=== PATIENT | female | born 1965 | race African-American/Black ===

== ENCOUNTER 2018-12-05 16:15 | Inpatient (IN) | payer BC ==
[2018-12-05 16:27] VITALS: BMI 34.9
[2018-12-05 17:31] LABS: Hemoglobin 12.3 g/dL (12.0-16.0); Mean Corpuscular HGB CONC 31.9 g/dL (32.0-36.0); Mean Corpuscular Hemoglobin 24.4 pg (27.0-31.0); Mean Corpuscular Volume 76.7 fL (78.0-98.0); Mean Platelet Volume 8.2 fL (7.4-10.4); Platelet Count 395 thou/uL (130-400); RBC Distribution Width 14.8 % (11.5-14.5); Red Blood Cell (RBC) Count 5.01 mill/uL (4.20-5.40); White Blood Cell (WBC) Count 5.6 thou/uL (4.8-10.8)
[2018-12-05 17:58] LABS: Anion Gap 14 mmol/L (10-20); BUN (Urea Nitrogen) 13 mg/dL (9.8-20.1); Calc. Creatinine Clearance 121 mL/min (70-130); Calcium 9.8 mg/dL (7.8-10.44); Carbon Dioxide 24 mmol/L (22-29); Chloride 107 mmol/L (98-107); Estimated GFR-MDRD Greater than 90; Glucose 86 mg/dL (70-105); Potassium 3.9 mmol/L (3.5-5.1); Sodium 141 mmol/L (136-145)
[2018-12-06] MEDS ORDERED: Gabapentin 300 MG CAP ONE (10:04)
[2018-12-06] MEDS ORDERED: CeleCOXIB 100 MG CAP ONE (10:04)
[2018-12-06] MEDS ORDERED: Famotidine/PF 20 mg/2ml Vial ONE (10:04)
[2018-12-06] MEDS ORDERED: Bupivacaine/Epinephrine 0.25% 30 ML VIAL ONE (13:27)
[2018-12-06] MEDS ORDERED: Fentanyl 100 MCG/2 ML VIAL ONE ×4 (13:36→18:02)
[2018-12-06] MEDS ORDERED: Promethazine HCl 25 MG/ML VIAL IM PRN (16:25)
[2018-12-06] MEDS ORDERED: Simethicone Chewable 80 MG TAB PO PRN (16:25)
[2018-12-06] MEDS ORDERED: diphenhydrAMINE 25 MG CAP PO PRN (16:25)
[2018-12-06] MEDS ORDERED: traMADol HCl 50 MG TAB PO PRN ×2 (16:25)
[2018-12-06] MEDS ORDERED: Ondansetron PF 4 MG/2 ML Vial IVP PRN (16:25)
[2018-12-06] MEDS ORDERED: Morphine 4 MG/ML VIAL SLOW IVP PRN (16:25)
[2018-12-06] MEDS ORDERED: Bisacodyl 10 MG SUPP PR PRN (16:25)
[2018-12-06] MEDS ORDERED: Labetalol HCl 100 MG/20 ML VIAL SLOW IVP PRN (16:25)
[2018-12-06] MEDS ORDERED: Zolpidem Tartrate 5 MG TAB PO PRN (16:25)
[2018-12-06] MEDS ORDERED: HYDROmorphone 2 MG/ML VIAL ONE (17:02)
[2018-12-06] MEDS ORDERED: Ondansetron HCl/PF 4 MG/2 ML Vial IVP PRN (17:04)
[2018-12-06] MEDS ORDERED: HYDROmorphone 2 MG/ML VIAL SLOW IVP PRN (17:04)
[2018-12-06] MEDS ORDERED: Promethazine HCl 25 MG/ML VIAL IM/IV PRN (17:04)
[2018-12-06] MEDS ORDERED: Non-Formulary Medication 1 EACH PO PRN (17:04)
[2018-12-06] MEDS: Ketorolac Tromethamine 30 MG/ML VIAL IVP SCH (19:20)
[2018-12-06] MEDS: Sodium Chloride 0.9% 1,000 ML IV SCH (19:21)
[2018-12-07] MEDS: Ketorolac Tromethamine 30 MG/ML VIAL IVP SCH ×2 (00:08→05:43)
[2018-12-07] MEDS: Acetaminophen 1,000 MG in Premix Bag 1 BAG IVPB SCH ×2 (00:09→05:45)
--- NOTE | 2018-12-07 01:59 | OP ---
DATE OF PROCEDURE: 12/06/2018 PREOPERATIVE DIAGNOSES: 1. A 53-year-old female, G1, P1 with postmenopausal bleeding. 2. Uterine leiomyoma with degeneration. POSTOPERATIVE DIAGNOSES: 1. A 53-year-old female, G1, P1 with postmenopausal bleeding. 2. Uterine leiomyoma with degeneration. PROCEDURES PERFORMED: Robotic total laparoscopic hysterectomy with bilateral oophorectomy with ExCITE procedure for removal of uterine specimen. EXPERIMENTAL ELECTRONICS DEVELOPER SURGEON: Olivia Snell PA-C ANESTHESIA: General endotracheal. ESTIMATED BLOOD LOSS: 200 mL. COMPLICATIONS: None. COUNTS: Correct x2. ANTIBIOTICS: 2 g Ancef on-call to OR along with ERAS protocol. PATHOLOGY: Bilateral fallopian tubes, ovaries, uterus, and cervix. FINDINGS: 1. Postmenopausal-appearing bilateral adnexal structures. 2. Large uterus approximately 14- to 15-week size with multiple fibroids of intramural and submucosal noted. 3. Clear urine present in Caputo catheter postprocedure and bladder was watertight to fluid distention greater than 300 mL during the procedure. 4. Bilateral ureteral peristalsis visualized pedicle sites postprocedure. DISPOSITION: Recovery room, stable. DESCRIPTION OF OPERATIVE PROCEDURE: Patient previously received an informed consent in regard to the surgery. She was taken back to the operating room, where she received a general endotracheal anesthetic agent without complications. She was then prepped and draped in the usual sterile fashion. She was placed in dorsal lithotomy position. Caputo catheter was placed and a side-arm speculum was placed in the vagina. The cervix was grasped with a single-tooth tenaculum and the uterus sounded to approximately 11 cm. A size 10 cm VANDANA uterine manipulator with a 5.0 cm cup was then placed. Attention was then turned to the abdomen, where perspective trocar sites were infiltrated with 0.5% Marcaine with epinephrine. A 12 mm supraumbilical incision was made. Veress needle was entered into the peritoneal cavity. The patient's pressure was noted to be less than 5 mm and the abdomen was insufflated with the patient's pressure of 15 approximately 5 L of carbon dioxide gas. Veress needle was then removed. Size 12 mm trocar was then placed. The laparoscope was introduced through trocar sleeve confirming proper entry. A lower quadrant 8 mm robotic trocars were placed under laparoscopic guidance with the right upper quadrant 11 mm accountant assistant port. Due to the size of the fibroid uterus ExCITE procedure for removal and therefore a small GelPOINT was placed with a small Conner O retractor after the umbilical incision was extended fascial defect approximately 2.5 cm. Once this was completed, the laparoscoped was introduced through the trocar sleeve through the GelPOINT and then the robot was docked once the patient was in Trendelenburg position. I then broke scrub and proceeded to carry out the surgery from the operative console while my assistants remained at the bedside. The left adnexal structures were identified and my accountant assistant grasped the fimbria on the left side and the bipolar fenestrated cautery was utilized to coagulate and transect the IP ligament on the left. Serial coagulation of the broad ligament hugging close to the uterine specimen away from the pelvic sidewall carried out continually with coagulation and transection until left round ligament was reached. It again was transected after cautery and the anterior leaf of the broad ligament was entered. The vesicouterine peritoneal layer was identified in a layering technique. The bladder was atraumatically dissected from the lower uterine segment past the cervical margin was delaminated by the VANDANA uterine manipulator cervical cup. The vessels continued to be skeletonized on the left side and then they were coagulated in the internal cervical os region. The uterus was then moved away from the right pelvic sidewall by my accountant assistant and we were able to identify the right fallopian tube and ovary. Again, this was grasped by my accountant assistant and I coagulated the IP ligament on the right side, coagulating and transecting this. Again, the same procedure was carried out where the broad ligament was cauterized and transected until the right round ligament was reached. It again was coagulated and transected. Again, anterior leaf of the broad ligament was entered, completion of the dissection, the vesicouterine peritoneum and the bladder past the cervical vaginal angle was accomplished atraumatically. The right uterine vessels again were skeletonized and coagulated in the internal cervical os region and also the ascending branches to prevent with backbleeding. We distended the bladder at this time to confirm that the bladder had been adequately dissected away from the anticipated anterior colpotomy over the vagina and the bladder was well below the anticipated incision site. The bladder was then deflated and was noted to be watertight. The anterior colpotomy was then initiated from 12 o'clock towards 3 o'clock position over the cervical cup that was visualized. The vessels on the right side again were coagulated to confirm hemostasis. Then, this was carried around to the 9 o'clock position on the patient's left side again, coagulating the uterine vessel arteries and veins in this region. The large uterus was then lifted by myself with bipolar fenestrated cautery and my assistants and manipulated and completed the posterior colpotomy dissection starting between 6 and 9 o'clock. The specimen was then released from the vaginal cuff. It was taken off the [employer] uterine manipulator and the uterus was delivered to the upper abdomen. A monopolar scissor was then exchanged with a Asa needle electric mule driver. The Asa needle electric mule driver was utilized to grasp the vaginal cuff and then any areas of bleeding were coagulated with bipolar fenestrated. My accountant assistant brought in Stratafix suture. I then proceeded to close the vaginal cuff and full layer thickness closure on the right angle towards the left vaginal cuff angle back towards the midline, securing hemostasis and closure. My accountant assistant cut the excess suture and the suture needle was delivered intact through the right upper quadrant accountant assistant port. Again, we irrigated the pelvis, again pelvic sidewalls and pedicles were confirmed to be hemostatic. The bladder was draining clear urine from the Caputo catheter and we felt the passage of the ureters bilaterally and the peristalsis of each were noted and they all appeared to be below the operative field site. We then brought and we prepared Aces medium-sized bag that had been [employer], folded and tied with sutures and this had been placed in the right upper quadrant when the initial GelPOINT had been placed. This was brought into the pelvis in the proper position to deliver the uterine specimen into this. We moved the specimen of the uterus over the bag and we were able to then cut the stay sutures that released opening the bag and brought the specimen inside to the Aces bag. A pre-tied loop had been placed on the opposite end of the bag where the stay suture of the bag was initially brought through the loop and then the bag was secured and the excess string was then delivered to my accountant assistant grasped it with a Glenis through the GelPOINT, pulling the bag in its contents towards the GelPOINT umbilical incision. I then broke scrub from the robot. The robot was then undocked. The Aces bag was then delivered through the umbilical fascial incision with the uterus in situ. We then removed the small Conner O retractor and put that with inside the bag to protect the bag during the morcellation process. Then with the C cutting technique, we delivered the specimen in toto along with the Aces bag that was intact. The Conner O retractor was removed. The fascia was then closed with 0 Vicryl suture in a running continuous fashion with good approximation confirmed. The remainder of the trocar sites were then closed with 4-0 Monocryl suture and Dermabond. The vaginal cuff was inspected with a sponge stick and noted to be hemostatic vaginally. Patient was then awakened from the anesthesia and transferred to recovery room in stable condition. Job ID: [id number]
[2018-12-07] MEDS: Sodium Chloride 0.9% 1,000 ML IV SCH ×2 (04:30→09:38)
[2018-12-07 05:30] LABS: Mean Corpuscular HGB CONC 30.1 g/dL (32.0-36.0); Mean Corpuscular Hemoglobin 23.3 pg (27.0-31.0); Mean Corpuscular Volume 77.4 fL (78.0-98.0); Mean Platelet Volume 8.1 fL (7.4-10.4); Platelet Count 356 thou/uL (130-400); RBC Distribution Width 14.5 % (11.5-14.5); Red Blood Cell (RBC) Count 4.27 mill/uL (4.20-5.40); White Blood Cell (WBC) Count 8.4 thou/uL (4.8-10.8)
[2018-12-07] MEDS ORDERED: (Turmeric Root Extract [Turmeric Curcumin] 500 MG) PO SCH (09:00)
[2018-12-07] MEDS ORDERED: Ferrous Sulfate 325 MG TAB PO SCH (09:00)
[2018-12-07] MEDS ORDERED: Amlodipine 10 MG TAB PO SCH (09:00)
[2018-12-07] MEDS ORDERED: Hydrochlorothiazide 25 MG TAB PO SCH (09:00)
--- NOTE | 2018-12-07 11:44 | PDOC.EVN ---
Event Note - Event Note Event Note: Tolerating diet well. Ambulating and voiding well.Ready to go home. O: HCT 33%. P76 BP 124/73 R16. U/O 1800 ml ABD: soft and non distended. Expected tenderness. Trocahar sites C/D/I.. A/P: Doing well post op day 1 from robotic tlh/bso wuth EXCITE procedure. Discharge home. F/u 2 and 6 weeks.
[2018-12-07 12:07] VITALS: BP 128/73; TEMP 99
[2018-12-07] MEDS ORDERED: Acetaminophen 325 MG TAB PO PRN (18:00)
--- NOTE | 2018-12-08 00:29 | DIS ---
DATE OF ADMISSION: 12/06/2018 DATE OF DISCHARGE: 12/07/2018 DIAGNOSES: 1. Postmenopausal bleeding. 2. Large uterine fibroids. PROCEDURES PERFORMED: Robotic total laparoscopic hysterectomy and BSO with ExCITE procedure for removal of the specimen. SUMMARY OF HOSPITAL COURSE: Ms. Barth is a 53-year-old female, who had a long history of uterine fibroids beginning with regular bleeding over the past year in perimenopausal and menopausal status. Uterine fibroids of approximately 16-week size. She underwent a robotic total laparoscopic hysterectomy and BSO on 12/06, and removal of tissue with the ExCITE procedure. Postoperatively, the patient has done well. She is ambulating, voiding and tolerating regular diet without difficulty. Her hematocrit postop day number #1 is 33%. Vital signs are stable. She is tolerating diet well and voiding well and is passing flatus. She is ready for discharge. Pathology is pending at the time of this dictation. She will be discharged home to resume her maintenance medications for chronic hypertension of amlodipine and hydrochlorothiazide. The prescription for tramadol 50 q.6 hours p.r.n. pain has been prescribed along with [id number] ibuprofen or Aleve as needed. She is to follow up in 2 and 6 weeks. Job ID: [id number]
[2018-12-11] MEDS ORDERED: Ibuprofen 800 MG TAB PO SCH (22:00)
== END 2018-12-07 12:23 | disposition home or self-care (01) | DRG 743 ==
LOC: SURG A 12-06 09:30 → 3SE 12-06 16:42
PROVIDERS: ADMIT Obstetrics & Gynecology; ATTEND Obstetrics & Gynecology
PROC: 0UT94ZZ Resection of Uterus, Percutaneous Endoscopic Approach (ICD-10-PCS; principal; 2018-12-06)
PROC: 0UT74ZZ Resection of Bilateral Fallopian Tubes, Percutaneous Endoscopic Approach (ICD-10-PCS; 2018-12-06)
PROC: 0UT24ZZ Resection of Bilateral Ovaries, Percutaneous Endoscopic Approach (ICD-10-PCS; 2018-12-06)
PROC: 8E0W4CZ Robotic Assisted Procedure of Trunk Region, Percutaneous Endoscopic Approach (ICD-10-PCS; 2018-12-06)
DX: D25.9 Leiomyoma of uterus, unspecified (principal); N95.0 Postmenopausal bleeding; I10 Essential (primary) hypertension
CPT/HCPCS: 36415; 80048; 85027; 86850; 86900; 86901; 93005; 93010; J0131; J0690; J1170; J1885; J3010; S0028

== ENCOUNTER 2018-12-05 16:25 | Outpatient (CLI) | payer BC ==
--- NOTE | 2018-12-05 22:15 | HP ---
She is scheduled for surgery on December 06. HISTORY OF PRESENT ILLNESS: Ms. Barth is a 53-year-old female, G1, P1, who is noting to have some postmenopausal irregular bleeding. She saw my partner, Dr. Abraham Acevedo for evaluation of this, which an endometrial biopsy was performed showing benign and active endometrium. Ultrasound evaluation of the uterus due to the bleeding did show it to measure 10.8 x 8.1 x 7.8 cm with the intracavitary mass measuring 4.74 x 4.1 cm, either a polyp or myoma. She had a small anterior uterine fibroid measuring 2.54 cm. No adnexal masses were noted. The patient denies any other symptoms other than vasomotor symptoms, which have been getting worse over the past 6 months or so. Her FSH level was 111, consistent with menopause. She denies any severe abdominal pain or bowel or bladder symptoms. PAST MEDICAL HISTORY: Noted for chronic hypertension. PAST SURGICAL HISTORY: No surgeries in the past. ALLERGIES: NO KNOWN DRUG ALLERGIES. CURRENT MEDICATIONS: 1. Amlodipine 10 mg daily. 2. Hydrochlorothiazide 12.5 mg daily. 3. Iron 325 mg tablet daily. FAMILY HISTORY: Only significant for hypertension and lung cancer in her brother who was a smoker. SOCIAL HISTORY: Nonsmoker. No excessive alcohol use. IT ADMINISTRATIVE ASSISTANT HISTORY: Pap smear was normal in May 2017 with negative HPV testing. PHYSICAL EXAMINATION: VITAL SIGNS: Her height is 5 feet 3 inches, weight 197, blood pressure 120/76, O2 saturation on room air 99%, pulse regular at 75. BMI is 34.9. HEENT: Within normal limits. CHEST: Clear to auscultation. HEART: Regular rate and rhythm. S1 and S2 heart sounds. No murmurs, rubs, or gallops. ABDOMEN: Soft, nontender, nondistended with no palpable masses. PELVIC: Vulva, vagina had no lesions. Cervix had no lesions. Her uterus was approximately 10-to 12-week size, nontender. Adnexa are nontender with no masses. ASSESSMENT: This is a 53-year-old postmenopausal female G1, P1, with postmenopausal bleeding, now with benign endometrial biopsy with endometrial cavitary mass most likely a degenerating myoma versus polyp. PLAN: Plan is to proceed with robotic total laparoscopic hysterectomy and bilateral salpingo-oophorectomy. Risks and benefits of procedure had been discussed in detail. She is also aware of possible need to remove the specimen through the ExCITE procedure if the uterus is too large to move through the vaginal colpotomy. She is set for surgery on 12/06 and has followup in 2 and 6 weeks postop. Job ID: [id number]
--- NOTE | 2018-12-06 16:10 | EKG ---
Test Reason : Blood Pressure : / mmHG Vent. Rate : 077 BPM Atrial Rate : 077 BPM P-R Int : 152 ms QRS Dur : 082 ms QT Int : 390 ms P-R-T Axes : 041 021 047 degrees QTc Int : 441 ms Normal sinus rhythm Cannot rule out Anterior infarct , age undetermined Abnormal ECG Confirmed by DEVANTE NIETO ([id number]) on 12/06/2018 4:09:40 PM Referred By: JURGEN Confirmed By:DEVANTE NIETO
== END 2018-12-05 16:26 | disposition home or self-care (01) ==
LOC: LABBT 16:25
PROVIDERS: ATTEND Obstetrics & Gynecology
DX: Z01.818 Encounter for other preprocedural examination (principal); D25.9 Leiomyoma of uterus, unspecified; N95.0 Postmenopausal bleeding
CPT/HCPCS: 93005; 93010

== ENCOUNTER 2024-02-20 09:00 | Outpatient (CLI) | payer OTHER | END 2024-02-20 09:01 | disposition home or self-care (01) | LOC: MRI 09:00 | PROVIDERS: ATTEND Family Medicine | DX: M54.16 Radiculopathy, lumbar region (principal); M48.061 Spinal stenosis, lumbar region without neurogenic claudication; M48.56XA Collapsed vertebra, not elsewhere classified, lumbar region, initial encounter for fracture | CPT/HCPCS: 72148 ==